=== PATIENT | male | born 1965 ===

== ENCOUNTER 2017-05-30 20:08 | Emergency (ER) | payer MEDICARE ==
[2017-05-30] MEDS ORDERED: Rocephin 1000 MG INJ IM ONE (21:17)
[2017-05-30] MEDS ORDERED: TYLENOL EXTRA STRENGTH 500 MG PO STA (21:27)
--- NOTE | 2017-05-30 21:27 | ERPHSYRPT ---
- History of Present Illness Time Seen by Provider: 05/30/17 21:23 Physician History: 51-year-old male with significant past medical history of diabetes mellitus, hypertension, obesity came to the emergency room with 2 days history of cough, fever, chills and shortness of breath. Patient denies any generalized malaise or body ache. Patient took some Robitussin-DM at home but without any help, so he came to the emergency room as he was running fever about 101F. Timing/Duration: yesterday Cough Quality/Degree: productive cough Possible Cause: no prior episodes Associated Symptoms: fever, chills, cough International travel in last 2 weeks: No Hx Tetanus, Diphtheria Vaccination/Date Given: No Hx Influenza Vaccination/Date Given: Yes Hx Pneumococcal Vaccination/Date Given: Yes Immunizations Up to Date: Yes - Review of Systems Constitutional: Fever, Chills Eyes: No Symptoms Ears, Nose, & Throat: No Symptoms Respiratory: Cough, No Dyspnea Cardiac: No Chest Pain, No Edema, No Syncope Abdominal/Gastrointestinal: No Abdominal Pain, No Nausea, No Vomiting, No Diarrhea Genitourinary Symptoms: No Dysuria Musculoskeletal: No Back Pain, No Neck Pain Skin: No Rash Neurological: No Dizziness, No Focal Weakness, No Sensory Changes Psychological: No Symptoms Endocrine: No Symptoms All Other Systems: Reviewed and Negative - Nursing Vital Signs Nursing Vital Signs: Initial Vital Signs Temperature 101.6 F 05/30/17 21:05 Pulse Rate 120 H 05/30/17 21:05 Respiratory Rate 20 05/30/17 21:05 Blood Pressure 169/102 05/30/17 21:05 O2 Sat by Pulse Oximetry 95 05/30/17 21:05 Pain Scale Pain Intensity 0 - Physical Exam General Appearance: no apparent distress, alert Eye Exam: PERRL/EOMI, eyes nml inspection Ears, Nose, Throat Exam: normal ENT inspection, TMs normal, pharynx normal, moist mucous membranes Neck Exam: normal inspection, non-tender, supple, full range of motion Respiratory Exam: rhonchi, wheezing, No respiratory distress Cardiovascular Exam: regular rate/rhythm, normal heart sounds Gastrointestinal/Abdomen Exam: soft, No tenderness Back Exam: normal inspection, No CVA tenderness, No vertebral tenderness Extremity Exam: normal inspection, normal range of motion Neurologic Exam: alert, oriented x 3, cooperative, normal mood/affect, sensation nml, No motor deficits Skin Exam: normal color, warm, dry, No rash Lymphatic Exam: No adenopathy SpO2: 95 Oxygen Delivery: Room Air - Course Nursing assessment & vital signs reviewed: Yes Ordered Tests: Active Orders 24 hr Category Date Time Status Clean Catch Urine Specimen STAT Care 05/30/17 21:05 Active Medication Summary Discontinued Medications Generic Name Dose Route Start Last Admin Trade Name Deidra PRN Reason Stop Dose Admin Acetaminophen 500 mg 05/30/17 21:27 Tylenol Extra Strength 500 Mg PO 05/30/17 21:28 STAT STA Ceftriaxone Sodium 1,000 mg 05/30/17 21:17 Rocephin 1000 Mg Inj IM 05/30/17 21:18 STAT ONE - Progress Progress: improved Air Movement: good Blood Culture(s) Obtained: No Antibiotics given: Yes Counseled pt/family regarding: diagnosis, need for follow-up - Departure Time of Disposition: 21:43 Departure Disposition: Home Clinical Impression: Acute bronchitis Qualifiers: Bronchitis organism: unspecified organism Qualified Code(s): J20.9 - Acute bronchitis, unspecified Condition: Stable Critical Care Time: No Referrals: JAMIE DELUCA MD [Primary Care Provider] - Instructions: Acute Bronchitis, Adult (DC), Fever, Adult (DC) Additional Instructions: SHMUELCOSMO ASHFORD was seen on 05/30/17 n the Emergency Room. At that time you were treated for an emergent condition, during your visit Laboratory, Radiology and/or other procedures may have been ordered. It is very important that you follow-up with your Primary Care Physician JAMIE DELUCA within the next 24-48 hours to review your Emergency Room visit and the final results of testing that was ordered. Some test results such as Urine Cultures, Blood Cultures, and other cultures if ordered will not be finalized for 24-48 hours. If you do not have a Primary Care Provider please call the medical records department at [phone] to obtain a copy of your results or you may sign into our patient portal to obtain these results by visiting us @ [email or web address] and completing the following steps: 1. Click on the Patient Portal link 2. Click the Patient Self Enrollment Link to complete the enrollment form and entering your 3. Once the enrollment form is completed you will receive an email with a temporary ID and password at the email address you provided. 4. Next choose a user name and password. Your user name must be at least 4 characters long and your password must be at least 4 characters long. 5. Choose a security question from the list and provide your answer to the question. If you already have signed into the Health Portal you may access your Health Care Information 17/10 by the following steps: 1. Login to our website @ [email or web address] 2. Enter your original user name and password. FAQS The [facility] Portal is an online tool that contains your Lab Results, Radiology Reports, Visit History, Discharge Instructions and Health Summary Lab and Radiology Results will not be available for 72 hours on the portal. The Portal is a secure site, passwords are encryted and URLs are re-written so they cannot be copied and pasted. You and authorized family members are the only ones who can access your Portal. Also there is a timeout feature that protects your information if you leave the Portal page open. If you have technical difficulty please use the Contact Us link on the page this will allow you to submit any questions you have regarding the Portal or you may contact the Medical Record Department at [phone]. Prescriptions: Amoxicillin 500 mg Cap [Amoxil 500 mg] 500 mg PO TID #30 capsule
[2017-05-30] MEDS ORDERED: Rocephin 1000 MG INJ ONE (21:45)
[2017-05-30] MEDS ORDERED: TYLENOL EXTRA STRENGTH 500 MG ONE (21:45)
[2017-05-30 21:54] VITALS: BP 151/109; PULSE 98; O2SAT 93
[2017-05-30] MEDS ORDERED: XYLOCAINE 1% HCL 20 ML MDV ONE (23:32)
== END 2017-05-30 21:59 | disposition home or self-care (01) ==
LOC: ED 20:08
DX: J20.9 Acute bronchitis, unspecified (principal); E11.9 Type 2 diabetes mellitus without complications; I10 Essential (primary) hypertension; E66.9 Obesity, unspecified
CPT/HCPCS: 96372; 99284; J0696; A9270-GY